=== PATIENT | female | born 1945 | race Caucasian/White ===

== ENCOUNTER 2016-12-16 19:11 | Observation (INO) | payer OTHER, MEDICARE ==
[~2016-12-16] VITALS: Ht 152.4 cm; Wt 62.2 kg
[~2016-12-16 19:11] MED LIST: ASPIR-LOW81 MG PO; ASPIRIN81 M1 PO; GEMFIBROZIL600 MG PO; ISOSORBIDE MONO30 MG PO; Imdur PO; LISINOPRIL10 MG PO; LOPRESSOR25 MG PO; LOVASTATIN40 MG PO; MELATONIN3 MG PO; METOPROLOL SUCC25 MG PO; METOPROLOL TART25 MG PO; Mevacor PO; PRAVASTATIN SOD20 MG PO; Percocet 5/325,Endoc PO; Prilosec PO; RANITIDINE HCL150 MG PO; ZESTRIL,PRINIVIL5 MG PO; ZESTRIL10 MG PO; ZOFRAN4 MG PO; Zantac,Taladine PO
[2016-12-16 19:49] LABS: HEMATOCRIT 36.9 % (36.0-46.0); MCH 30.7 PG (29.0-34.0); MCHC 34.7 G/DL (30.0-36.0); MCV 88.5 FL (83-99); MEAN PLAT.VOLUME 11.3 uM^3 (9.5-12.4); PLATELET COUNT 199 K/uL (156-360); RBC DIS.WIDTH-CV 12.6 % (11.8-14.6); RED BLOOD COUNT 4.17 M/uL (3.80-5.20); WHITE BLOOD COUNT 7.3 K/uL (4.1-10.2)
[2016-12-16 19:58] LABS: CHLORIDE 107 mEq/L (99-109); POTASSIUM 3.2 mEq/L (3.7-5.4); SODIUM 142 mEq/L (136-147)
[2016-12-16 20:00] LABS: GLUCOSE 115 mg/dL (70-99)
[2016-12-16 20:01] LABS: ANION GAP 10 MEQ/L (2-14)
[2016-12-16 20:03] LABS: GFR ESTIMATE (CALCULATED) > 59 mL/min/
[2016-12-16 20:04] LABS: UREA NITROGEN (BUN) 12 mg/dL (9-23)
[2016-12-16 20:11] LABS: TROP-I INTERPRETATION NEGATIVE; TROPONIN-I < 0.01 ng/mL (0.0-0.30)
[2016-12-16] MEDS ORDERED: OMEPRAZOLE40 M1 PO (21:22)
[2016-12-16] MEDS ORDERED: MELATIN3 MG PO (21:22)
[2016-12-16] MEDS ORDERED: ONE-A-DAY ESSE1 EAC1 PO (21:22)
[2016-12-16] MEDS ORDERED: METOPROLOL TART25 MG PO (21:22)
[2016-12-16] MEDS ORDERED: LOVASTATIN40 MG PO (21:22)
[2016-12-16] MEDS ORDERED: LISINOPRIL10 MG PO (21:22)
[2016-12-16] MEDS ORDERED: LO-DOSE ASPIRIN81 M2 PO (21:22)
[2016-12-16] MEDS ORDERED: TYLENOL EXTRA500 MG PO (21:23)
[2016-12-17 01:16] VITALS: BP 112/56
[2016-12-17 02:55] LABS: TOTAL BILIRUBIN 0.4 mg/dL (0.0-1.0); TROP-I INTERPRETATION NEGATIVE; TROPONIN-I < 0.01 ng/mL (0.0-0.30)
[2016-12-17 02:56] LABS: ALKALINE PHOSPHATASE 101 IU/L (3-129)
[2016-12-17 02:58] LABS: DIRECT BILIRUBIN 0.2 mg/dL (0.0-0.3)
[2016-12-17 03:00] LABS: LIPASE 31 U/L (1.0-51.0)
[2016-12-17 04:30] VITALS: BP 100/52
[2016-12-17 08:00] VITALS: BP 124/70
[2016-12-17 09:49] LABS: TROP-I INTERPRETATION NEGATIVE; TROPONIN-I 0.02 ng/mL (0.0-0.30)
[2016-12-17 10:45] VITALS: BP 132/72
== END 2016-12-17 11:55 | disposition home or self-care (01) ==
LOC: EME 19:11 → EDOF 23:35 → 5WEST 23:35 → EDOF 23:35 → 5WEST 12-17 00:49
PROVIDERS: Hospitalist
DX: R07.2 Precordial pain (principal); I25.10 Atherosclerotic heart disease of native coronary artery without angina pectoris; Z95.5 Presence of coronary angioplasty implant and graft; Z95.810 Presence of automatic (implantable) cardiac defibrillator; Z95.1 Presence of aortocoronary bypass graft; Z95.2 Presence of prosthetic heart valve; K21.9 Gastro-esophageal reflux disease without esophagitis; E78.5 Hyperlipidemia, unspecified; I10 Essential (primary) hypertension; F17.200 Nicotine dependence, unspecified, uncomplicated; E87.6 Hypokalemia
CPT/HCPCS: 71020; 80048; 80076; 83690; 84484; 85027; 93005; 99281; 99285; G0378; J1644

== ENCOUNTER 2017-03-21 12:23 | Day surgery (SDC) | payer OTHER, MEDICARE ==
[~2017-03-21] VITALS: Ht 167.6 cm; Wt 65.8 kg
[~2017-03-21 12:23] MED LIST changes: +LISINOPRIL20 MG PO; +LO-DOSE ASPIRIN81 M2 PO; +MELATIN3 MG PO; +OMEPRAZOLE40 M1 PO; +ONE-A-DAY ESSE1 EAC1 PO; +TYLENOL EXTRA500 MG PO
== END 2017-03-21 15:36 | disposition home or self-care (01) ==
LOC: CATH 12:23
DX: Z45.02 Encounter for adjustment and management of automatic implantable cardiac defibrillator (principal); I47.2 Ventricular tachycardia; E78.5 Hyperlipidemia, unspecified; I11.0 Hypertensive heart disease with heart failure; I25.10 Atherosclerotic heart disease of native coronary artery without angina pectoris; K21.9 Gastro-esophageal reflux disease without esophagitis; I42.8 Other cardiomyopathies; I50.9 Heart failure, unspecified; G45.9 Transient cerebral ischemic attack, unspecified; I34.0 Nonrheumatic mitral (valve) insufficiency
CPT/HCPCS: J0690; J1200; J2250; J3010; S0020

== ENCOUNTER 2017-07-03 13:26 | Emergency (ER) | payer OTHER, MEDICARE ==
[~2017-07-03] VITALS: Ht 167.6 cm; Wt 67.1 kg
[2017-07-03 14:25] LABS: BASOPHIL COUNT 0.1 K/uL (0-0.1); EOSINOPHIL (%) 1.6 % (0-5); EOSINOPHIL COUNT 0.1 K/uL (0-0.3); HEMATOCRIT 36.4 % (36.0-46.0); IMMATURE GRANULOCYTE (%) 0.3 % (0.0-0.7); INSTRUMENT ABS NEUTROPHIL CT 4.7 K/uL; LYMPHOCYTE COUNT 2.2 K/uL (1.0-2.8); MCH 30.3 PG (29.0-34.0); MCHC 33.8 G/DL (30.0-36.0); MCV 89.7 FL (83-99); MEAN PLAT.VOLUME 11.9 uM^3 (9.5-12.4); MONOCYTE (%) 6.1 % (3-12); MONOCYTE COUNT 0.5 K/uL (0-0.8); NEUTROPHIL (%) 62.4 % (45-76); NEUTROPHIL COUNT 4.7 K/uL (1.8-6.4); PLATELET COUNT 183 K/uL (156-360); RBC DIS.WIDTH-CV 12.6 % (11.8-14.6); RBC DIS.WIDTH-SD 41.6 % (39-53); RED BLOOD COUNT 4.06 M/uL (3.80-5.20); WHITE BLOOD COUNT 7.6 K/uL (4.1-10.2)
[2017-07-03 14:32] LABS: CHLORIDE 103 mEq/L (99-109); POTASSIUM 3.1 mEq/L (3.7-5.4); SODIUM 140 mEq/L (136-147)
[2017-07-03 14:34] LABS: GLUCOSE 104 mg/dL (70-99)
[2017-07-03 14:36] LABS: ANION GAP 11 MEQ/L (2-14); TOTAL BILIRUBIN 0.7 mg/dL (0.0-1.0)
[2017-07-03 14:38] LABS: ALKALINE PHOSPHATASE 118 IU/L (3-129); GFR ESTIMATE (CALCULATED) > 59 mL/min/
[2017-07-03 14:39] LABS: UREA NITROGEN (BUN) 7 mg/dL (9-23)
[2017-07-03 14:41] LABS: LIPASE 16 U/L (1.0-51.0)
[2017-07-03 14:46] LABS: ADD MIUA? NO; BILIRUBIN NEGATIVE; BLOOD NEGATIVE; COLOR STRAW ((YELLOW)); GLUCOSE (STRIP) NEGATIVE; KETONES NEGATIVE; LEUKOCYTES NEGATIVE; NITRITE NEGATIVE; PROTEIN (STRIP) NEGATIVE; SPECIFIC GRAVITY 1.004 (1.000-1.030); UROBILINOGEN 0.2 MG/DL (0.2-1.0)
[2017-07-03] MEDS ORDERED: ZOFRAN ODT4 MG PO (15:57)
[2017-07-03] MEDS ORDERED: PERCOCET 5/31 TABLET PO (15:57)
[2017-07-03] MEDS ORDERED: FLAGYL500 MG PO (15:57)
[2017-07-03] MEDS ORDERED: CIPRO500 MG PO (15:57)
[2017-07-03] MEDS ORDERED: AUGMENTIN875 MG PO (16:25)
[2017-07-03 16:48] VITALS: BP 154/87
== END 2017-07-03 16:49 | disposition home or self-care (01) ==
LOC: EME 13:26
PROVIDERS: Physician Assistant
DX: K57.32 Diverticulitis of large intestine without perforation or abscess without bleeding (principal); R19.7 Diarrhea, unspecified; Z90.710 Acquired absence of both cervix and uterus; Z90.49 Acquired absence of other specified parts of digestive tract; Z95.0 Presence of cardiac pacemaker; Z95.2 Presence of prosthetic heart valve; Z95.5 Presence of coronary angioplasty implant and graft; Z85.828 Personal history of other malignant neoplasm of skin; Z79.82 Long term (current) use of aspirin; F17.200 Nicotine dependence, unspecified, uncomplicated
CPT/HCPCS: 74177; 80053; 81003; 83690; 85025; 99281; 99284; J2270; J2405; J7040

== ENCOUNTER 2017-07-17 14:54 | Inpatient (IN) | payer OTHER, MEDICARE ==
[~2017-07-17] VITALS: Ht 167.6 cm; Wt 66.1 kg
[~2017-07-17 14:54] MED LIST changes: +AUGMENTIN875 MG PO; +CIPRO500 MG PO; +FLAGYL500 MG PO; +PERCOCET 5/31 TABLET PO; +ZOFRAN ODT4 MG PO
[2017-07-17 15:29] LABS: HEMATOCRIT 43.5 % (36.0-46.0); MCH 30.1 PG (29.0-34.0); MCHC 33.1 G/DL (30.0-36.0); MEAN PLAT.VOLUME 11.7 uM^3 (9.5-12.4); PLATELET COUNT 227 K/uL (156-360); RBC DIS.WIDTH-CV 12.8 % (11.8-14.6); RBC DIS.WIDTH-SD 42.7 % (39-53); RED BLOOD COUNT 4.78 M/uL (3.80-5.20); WHITE BLOOD COUNT 10.1 K/uL (4.1-10.2)
[2017-07-17 15:39] LABS: CHLORIDE 104 mEq/L (99-109); POTASSIUM 3.5 mEq/L (3.7-5.4); SODIUM 137 mEq/L (136-147)
[2017-07-17 15:41] LABS: GLUCOSE 102 mg/dL (70-99)
[2017-07-17 15:42] LABS: ANION GAP 8 MEQ/L (2-14)
[2017-07-17 15:43] LABS: TOTAL BILIRUBIN 0.6 mg/dL (0.0-1.0)
[2017-07-17 15:44] LABS: ALKALINE PHOSPHATASE 109 IU/L (3-129)
[2017-07-17 15:44] LABS: ADD MIUA? YES; BILIRUBIN NEGATIVE; BLOOD SMALL; COLOR YELLOW ((YELLOW)); GLUCOSE (STRIP) NEGATIVE; KETONES NEGATIVE; LEUKOCYTES TRACE; NITRITE NEGATIVE; PROTEIN (STRIP) NEGATIVE; SPECIFIC GRAVITY 1.011 (1.000-1.030); UROBILINOGEN 0.2 MG/DL (0.2-1.0)
[2017-07-17 15:45] LABS: GFR ESTIMATE (CALCULATED) > 59 mL/min/
[2017-07-17 15:46] LABS: UREA NITROGEN (BUN) 7 mg/dL (9-23)
[2017-07-17 15:57] LABS: BACTERIA NONE SEEN /HPF; EPITHELIAL CELLS 1+ /HPF; MUCUS TRACE /LPF; RED BLOOD CELLS 0-5 /HPF (0-5); UCUL ADDED? NO; WHITE BLOOD CELLS 0-5 /HPF (0-5)
[2017-07-17 20:44] VITALS: BP 141/70
[2017-07-17 22:40] VITALS: BP 140/62
[2017-07-18 02:50] VITALS: BP 96/50
[2017-07-18 06:09] LABS: POINT-OF-CARE METER ID UU14162508
[2017-07-18 08:28] VITALS: BP 120/58
[2017-07-18] MEDS ORDERED: ZOFRAN ODT4 MG PO (12:09)
[2017-07-18 16:09] VITALS: BP 152/68
[2017-07-18 19:15] VITALS: BP 143/72
[2017-07-18 23:05] VITALS: BP 130/75
[2017-07-19 03:40] VITALS: BP 131/60
[2017-07-19 07:39] VITALS: BP 143/67
[2017-07-19 11:30] LABS: ANION GAP 10 MEQ/L (2-14); CHLORIDE 107 MEQ/L (99-109); GFR ESTIMATE (CALCULATED) > 59 mL/min/; GLUCOSE 86 mg/dL (70-99); SAMPLE HEMOLYSIS CHECK 0; SAMPLE ICTERIC CHECK 0; SAMPLE LIPEMIA CHECK 0; SODIUM 140 MEQ/L (136-147); UREA NITROGEN (BUN) 10 mg/dL (9-23)
[2017-07-19 16:02] VITALS: BP 166/72
[2017-07-19 23:35] VITALS: BP 149/71
[2017-07-20 07:40] VITALS: BP 137/70
[2017-07-20] MEDS ORDERED: FLORASTOR250 MG PO (11:01)
[2017-07-20] MEDS ORDERED: BENTYL10 MG PO (12:05)
== END 2017-07-20 12:31 | disposition home or self-care (01) | DRG 392 ==
LOC: EME 14:54 → EDOF 17:44 → 2EAST 17:44 → ENRESERV 17:45 → 2EAST 20:29
PROVIDERS: Hospitalist
DX: K57.32 Diverticulitis of large intestine without perforation or abscess without bleeding (principal); I50.22 Chronic systolic (congestive) heart failure; I11.0 Hypertensive heart disease with heart failure; I25.10 Atherosclerotic heart disease of native coronary artery without angina pectoris; E87.6 Hypokalemia; I25.5 Ischemic cardiomyopathy; E78.5 Hyperlipidemia, unspecified; I34.0 Nonrheumatic mitral (valve) insufficiency; F17.200 Nicotine dependence, unspecified, uncomplicated; K21.9 Gastro-esophageal reflux disease without esophagitis; Z66 Do not resuscitate; Z88.1 Allergy status to other antibiotic agents; Z85.828 Personal history of other malignant neoplasm of skin; Z95.810 Presence of automatic (implantable) cardiac defibrillator; Z95.1 Presence of aortocoronary bypass graft; Z95.3 Presence of xenogenic heart valve; Z90.49 Acquired absence of other specified parts of digestive tract; Z95.5 Presence of coronary angioplasty implant and graft; I25.2 Old myocardial infarction; Z79.82 Long term (current) use of aspirin; Z79.899 Other long term (current) drug therapy; Z86.74 Personal history of sudden cardiac arrest; Z86.79 Personal history of other diseases of the circulatory system; Z82.49 Family history of ischemic heart disease and other diseases of the circulatory system; Z80.1 Family history of malignant neoplasm of trachea, bronchus and lung
CPT/HCPCS: 74177; 80048; 80053; 81003; 82948; 85027; 99281; 99285; J0696; J0744; J1650; J1885; J2270; J2405; J2543; J7030; J7050

== ENCOUNTER → 2017-12-20 | Outpatient (CLI) | payer OTHER, MEDICARE ==
[~2017-12-20] MED LIST changes: +BENTYL10 MG PO; +FLORASTOR250 MG PO
== END | disposition home or self-care (01) ==
DX: M17.11 Unilateral primary osteoarthritis, right knee (principal); R26.2 Difficulty in walking, not elsewhere classified; M25.561 Pain in right knee; M25.661 Stiffness of right knee, not elsewhere classified; M62.81 Muscle weakness (generalized)
CPT/HCPCS: 97161 GP; 97165 GO; 97530 GP; 97535 GO; G8978 GP; G8979 GP; G8980 GP; G8984 GO; G8985 GO; G8986 GO

== ENCOUNTER 2018-01-22 21:16 | Inpatient (IN) | payer OTHER, MEDICARE ==
[~2018-01-22] VITALS: Ht 167.6 cm; Wt 62.8 kg
[~2018-01-22 21:16] MED LIST changes: -OMEPRAZOLE40 M1 PO; +PRILOSEC20 MG PO
[2018-01-23] VITALS (7 sets, daily range): BP systolic 110–163; BP diastolic 55–81
[2018-01-24 03:52] VITALS: BP 112/62
[2018-01-24 09:14] LABS: MCV 93.1 FL (83-99)
[2018-01-24 09:17] LABS: HEMOGLOBIN 10.1 G/DL (11.9-15.5)
[2018-01-24 09:39] LABS: CHLORIDE 105 MEQ/L (99-109); GFR ESTIMATE (CALCULATED) 58 mL/min/; GLUCOSE 97 mg/dL (70-99); POTASSIUM 3.2 MEQ/L (3.7-5.4); SODIUM 142 MEQ/L (136-147); UREA NITROGEN (BUN) 14 mg/dL (9-23)
[2018-01-24] MEDS ORDERED: ENDOCET 5-3251 EACH PO (09:42)
[2018-01-24] MEDS ORDERED: ELIQUIS2.5 MG PO (09:42)
[2018-01-24 15:44] VITALS: BP 113/58
[2018-01-24 19:54] VITALS: BP 131/64
[2018-01-24 23:39] VITALS: BP 135/61
[2018-01-25 04:18] VITALS: BP 130/61
[2018-01-25 06:21] LABS: HEMATOCRIT 30.5 % (36.0-46.0); MCV 93.8 FL (83-99)
[2018-01-25 06:51] LABS: CHLORIDE 106 MEQ/L (99-109); CREATININE 0.9 MG/DL (0.6-1.3); GFR ESTIMATE (CALCULATED) > 59 mL/min/; GLUCOSE 89 mg/dL (70-99); SODIUM 139 MEQ/L (136-147); UREA NITROGEN (BUN) 11 mg/dL (9-23)
[2018-01-25 06:53] LABS: POTASSIUM 4.3 MEQ/L (3.7-5.4)
[2018-01-25 12:24] VITALS: BP 146/77
== END 2018-01-25 15:13 | DRG 470 ==
LOC: ENRESERV 21:16 → 3WEST 01-23 05:26 → 2SOUTH 01-23 05:26 → 3WEST 01-23 11:19 → 2SOUTH 01-23 15:07 → 3WEST 01-25 15:13
PROVIDERS: Physician Assistant
PROC: 0SRC0J9 Replacement of Right Knee Joint with Synthetic Substitute, Cemented, Open Approach (ICD-10-PCS; principal; 2018-01-24)
DX: M17.11 Unilateral primary osteoarthritis, right knee (principal); I10 Essential (primary) hypertension; Z90.49 Acquired absence of other specified parts of digestive tract; E78.5 Hyperlipidemia, unspecified; K21.9 Gastro-esophageal reflux disease without esophagitis; Z95.1 Presence of aortocoronary bypass graft; Z90.710 Acquired absence of both cervix and uterus; Z88.1 Allergy status to other antibiotic agents; Z88.5 Allergy status to narcotic agent; Z91.09 Other allergy status, other than to drugs and biological substances; Z79.82 Long term (current) use of aspirin; F17.200 Nicotine dependence, unspecified, uncomplicated
CPT/HCPCS: 80048; 85014; 85018; 97530 GO; C1713; J0131; J0690; J1100; J1885; J2405; J2795; J3010; J7050; J7120; S0020